=== PATIENT | female | born 1930 | race Caucasian/White ===

== ENCOUNTER 2018-03-03 10:05 | Inpatient (IN) | payer MEDICARE, OTHER ==
[2018-02-26 10:37] LABS: BASOPHILS % (AUTO) 0.2 % (0-1); EOSINOPHILS # (AUTO) 0.2 X10'3 (0-0.9); EOSINOPHILS % (AUTO) 2.2 % (0-6); LYMPHOCYTES # (AUTO) 1.6 X10'3 (1.1-4.8); LYMPHOCYTES % (AUTO) 17.1 % (21-51); MEAN CORPUSCULAR HEMOGLOBIN 30.7 PG (27.0-31.0); MEAN CORPUSCULAR HGB CONC 33.3 % (33.0-36.5); MEAN CORPUSCULAR VOLUME 92.3 FL (78-98); MEAN PLATELET VOLUME 6.9 FL (7.4-10.4); MONOCYTES # (AUTO) 0.7 X10'3 (0-0.9); NEUTROPHILS % (AUTO) 73.5 % (42-75); PRE OP HEMOGLOBIN 13.6 g/dL (12.0-16.0); PRE OP PLATELET COUNT 338 X10'3 (140-440); RED BLOOD COUNT 4.44 X10'6 (4.20-5.60); RED CELL DISTRIBUTION WIDTH 14.8 % (11.5-14.5)
[2018-02-26 10:37] LABS: CLARITY,URINE SLIGHTLY CLOUDY (Clear); COLOR,URINE YELLOW (Yellow); GLUCOSE, URINE NEGATIVE (Neg); KETONES,URINE NEGATIVE (Neg); LEUKOCYTE ESTERASE ,URINE MODERATE (Neg); NITRITES, URINE NEGATIVE (Neg); OCCULT BLOOD,URINE TRACE-INTACT (Neg); PH,URINE 5.5 (4.8-8.0); PROTEIN,URINE NEGATIVE (Neg); UROBILINOGEN,URINE 0.2 E.U/dL (0.2-1.0)
[2018-02-26 10:38] LABS: UA COLLECTION TYPE CLN CATCH MIDSTREAM
[2018-02-26 10:44] LABS: MUCUS STRANDS MODERATE /LPF (Neg); SQUAMOUS EPITHELIAL CELL,UR MANY /LPF (FEW); TRANSITIONAL EPI CELLS,URINE FEW /HPF
[2018-02-26 10:45] LABS: BACTERIA,URINE 1+ /HPF (Neg); RBC,URINE 0-2 /HPF (0-2)
[2018-02-26 10:52] LABS: ALBUMIN 3.4 G/DL (3.4-5.0); ALBUMIN/GLOBULIN RATIO 0.9 (1.1-1.5); ALKALINE PHOSPHATASE 65 IU/L (46-116); BLOOD UREA NITROGEN 18 MG/DL (7-18); BUN/CREATININE RATIO 16.2 (6.6-38.0); CALCIUM 9.1 MG/DL (8.5-10.1); CHLORIDE 105 MMOL/L (99-107); CREATININE 1.11 MG/DL (0.40-0.90); PRE OP ALT 24 U/L (30-65); PRE OP ANION GAP 9 (8-16); PRE OP AST 18 U/L (10-37); PRE OP BILIRUB, TOTAL 0.3 MG/DL (0.0-1.0); PRE OP GLUCOSE 101 MG/DL (70-104); PRE OP POTASSIUM 4.3 MMOL/L (3.4-5.1); PRE OP SODIUM 142 MMOL/L (135-145); TOTAL CARBON DIOXIDE 27.8 MMOL/L (24-32); TOTAL PROTEIN 7.2 G/DL (6.4-8.2); eGFR 46 ML/MIN
[~2018-03-03] VITALS: Ht 170.2 cm; Wt 67.0 kg
[2018-03-03] VITALS (16 sets, daily range): BP systolic 81–162; BP diastolic 53–90
[~2018-03-03 10:05] MED LIST: LEVO112T5 PO; ceFAZolin 2gm in dextrose, iso 100 ML IV ONE; famotidine 20mg tablet PO ONE
[2018-03-03] MEDS: ringers solution, lacted 1,000 ML IV SCH ×2 (11:08→17:14)
[2018-03-03] MEDS ORDERED: BUPIVAcaine 0.5% inj/PF 30 ml vial ONE (12:23)
[2018-03-03] MEDS ORDERED: ringers solution, lacted 1,000 ML IV SCH (12:34)
[2018-03-03] MEDS ORDERED: morphine 4 MG/ML inj SYRINge IV PRN ×2 (12:35)
[2018-03-03] MEDS ORDERED: fentaNYL/PF 50MCG/1 ML 2ML syringe IV PRN ×2 (12:35)
[2018-03-03] MEDS ORDERED: hydrALAZINE 20mg/ml inj. IV PRN (12:35)
[2018-03-03] MEDS ORDERED: labetalol 5mg/ml 20ml inj. IV PRN (12:35)
[2018-03-03] MEDS ORDERED: ondansetron/PF 4mg/2ml inj IV PRN (12:35)
[2018-03-03] MEDS ORDERED: sevoflurane 250ml liquid IH ONE (14:10)
[2018-03-03] MEDS ORDERED: dexamethasone sod phosphate 4mg/ml inj. ONE (14:10)
[2018-03-03] MEDS ORDERED: naloxone 0.4 mg/ml inj ONE (14:10)
[2018-03-03] MEDS ORDERED: propofol inj 20 ML IV ONE (14:19)
[2018-03-03] MEDS ORDERED: midazolam 2 mg/2 ml injection ONE (14:19)
[2018-03-03] MEDS ORDERED: fentaNYL/PF 50MCG/1 ML 2ML syringe ONE ×2 (14:19→15:12)
[2018-03-03] MEDS ORDERED: LIDOcaine 2% (20mg/ml) 5ml vial ONE (14:20)
[2018-03-03] MEDS ORDERED: ondansetron/PF 4mg/2ml inj ONE (14:20)
[2018-03-03] MEDS ORDERED: HYDROcodone/acetaminophen 5mg/325mg tablet PO PRN (15:45)
[2018-03-03] MEDS ORDERED: HYDROcodone/acetaminophen 5mg/325mg tablet PO ONE (15:45)
[2018-03-03] MEDS: potassium CL 20mEq in D5-1/2NS 1,000 ML IV SCH (23:10)
[2018-03-04] VITALS: BP 107/58
[2018-03-04] MEDS: potassium CL 20mEq in D5-1/2NS 1,000 ML IV SCH (04:11)
[2018-03-04 07:30] VITALS: BP 118/58
[2018-03-04 08:38] LABS: ALBUMIN 2.9 G/DL (3.4-5.0); ANION GAP 10 (8-16); BLOOD UREA NITROGEN 12 MG/DL (7-18); BUN/CREATININE RATIO 12.9 (6.6-38.0); CALCIUM 9.1 MG/DL (8.5-10.1); CHLORIDE 107 MMOL/L (99-107); CREATININE 0.93 MG/DL (0.40-0.90); GLUCOSE 138 MG/DL (70-104); POTASSIUM 4.3 MMOL/L (3.5-5.1); SODIUM 140 MMOL/L (135-145); TOTAL CARBON DIOXIDE 23.3 MMOL/L (24-32); eGFR 57 ML/MIN
[2018-03-04] MEDS ORDERED: iohexol 300mg/ml 100ml inj. ONE (09:14)
[2018-03-04 11:30] VITALS: BP 119/66
[2018-03-05] MEDS ORDERED: levoTHYROXINE 112mcg tablet PO SCH (08:00)
== END 2018-03-04 12:20 | disposition home or self-care (01) | DRG 376 ==
LOC: PAS 10:05 → SUR 3N 15:41
PROVIDERS: ADMIT Surgery; ATTEND Surgery
PROC: 0DBQ8ZX Excision of Anus, Via Natural or Artificial Opening Endoscopic, Diagnostic (ICD-10-PCS; 2018-03-03)
PROC: 0DBQ8ZZ Excision of Anus, Via Natural or Artificial Opening Endoscopic (ICD-10-PCS; 2018-03-03)
PROC: 0D5Q8ZZ Destruction of Anus, Via Natural or Artificial Opening Endoscopic (ICD-10-PCS; principal; 2018-03-03 14:10)
DX: C21.1 Malignant neoplasm of anal canal (principal); N18.3 Chronic kidney disease, stage 3 (moderate); K64.8 Other hemorrhoids; Z79.899 Other long term (current) drug therapy
CPT/HCPCS: 36415; 74177; 80048; 80053; 81001; 82378; 84443; 85025; 93005; A6224; A6253; A6258; A6449; A7000; J0690; J1100; J2001; J2250; J2310; J2405; J2704; J3010; J3490; J7120; Q9967

== ENCOUNTER 2018-03-16 13:50 | Inpatient (IN) | payer MEDICARE, OTHER ==
[~2018-03-16] VITALS: Ht 170.2 cm; Wt 65.2 kg
[~2018-03-16 13:50] MED LIST changes: -ceFAZolin 2gm in dextrose, iso 100 ML IV ONE; -famotidine 20mg tablet PO ONE
[2018-03-19 14:42] LABS: BASOPHILS % (AUTO) 0.3 % (0-1); EOSINOPHILS # (AUTO) 0.2 X10'3 (0-0.9); EOSINOPHILS % (AUTO) 2.1 % (0-6); LYMPHOCYTES # (AUTO) 2.1 X10'3 (1.1-4.8); LYMPHOCYTES % (AUTO) 22.1 % (21-51); MEAN CORPUSCULAR HGB CONC 33.8 % (33.0-36.5); MEAN CORPUSCULAR VOLUME 91.7 FL (78-98); MONOCYTES # (AUTO) 0.5 X10'3 (0-0.9); MONOCYTES % (AUTO) 5.7 % (2-12); NEUTROPHILS # (AUTO) 6.6 X10'3 (1.8-7.7); NEUTROPHILS % (AUTO) 69.8 % (42-75); PRE OP HEMATOCRIT 38.1 % (35.0-45.0); PRE OP HEMOGLOBIN 12.9 g/dL (12.0-16.0); PRE OP PLATELET COUNT 365 X10'3 (140-440); RED BLOOD COUNT 4.16 X10'6 (4.20-5.60); RED CELL DISTRIBUTION WIDTH 14.6 % (11.5-14.5)
[2018-03-19 14:46] LABS: CLARITY,URINE CLOUDY (Clear); COLOR,URINE YELLOW (Yellow); GLUCOSE, URINE NEGATIVE (Neg); KETONES,URINE NEGATIVE (Neg); LEUKOCYTE ESTERASE ,URINE LARGE (Neg); NITRITES, URINE NEGATIVE (Neg); OCCULT BLOOD,URINE MODERATE (Neg); PH,URINE 5.5 (4.8-8.0); PROTEIN,URINE TRACE mg/dl (Neg); UROBILINOGEN,URINE 0.2 E.U/dL (0.2-1.0)
[2018-03-19 14:51] LABS: UA COLLECTION TYPE CLN CATCH MIDSTREAM
[2018-03-19 14:52] LABS: MUCUS STRANDS MODERATE /LPF (Neg); SQUAMOUS EPITHELIAL CELL,UR MANY /LPF (FEW)
[2018-03-19 14:53] LABS: BACTERIA,URINE 2+ /HPF (Neg); WBC,URINE 30-50 /HPF (0-4)
[2018-03-19 14:57] LABS: PRE OP PROTIME 10.4 SECONDS (9.0-12.0)
[2018-03-19 15:07] LABS: ALBUMIN 3.3 G/DL (3.4-5.0); ALBUMIN/GLOBULIN RATIO 0.9 (1.1-1.5); ALKALINE PHOSPHATASE 67 IU/L (46-116); BLOOD UREA NITROGEN 22 MG/DL (7-18); CHLORIDE 108 MMOL/L (99-107); PRE OP ALT 28 U/L (30-65); PRE OP ANION GAP 8 (8-16); PRE OP AST 20 U/L (10-37); PRE OP BILIRUB, TOTAL 0.2 MG/DL (0.0-1.0); PRE OP GLUCOSE 110 MG/DL (70-104); PRE OP SODIUM 144 MMOL/L (135-145); TOTAL CARBON DIOXIDE 27.6 MMOL/L (24-32); eGFR 47 ML/MIN
[2018-03-20] VITALS (18 sets, daily range): BP systolic 103–155; BP diastolic 49–82
[2018-03-20] MEDS ORDERED: ringers solution, lacted 1,000 ML IV SCH ×2 (05:00→09:40)
[2018-03-20] MEDS ORDERED: ceFOXitin 2 GM ADDvantage bag 100 ML IV ONE (05:30)
[2018-03-20] MEDS ORDERED: famotidine 20mg tablet PO ONE (05:30)
[2018-03-20] MEDS ORDERED: LIDOcaine 1% (10mg/ml) 2ml vial ONE (06:18)
[2018-03-20] MEDS ORDERED: propofol inj 20 ML IV ONE (07:35)
[2018-03-20] MEDS ORDERED: fentaNYL/PF 50MCG/1 ML 2ML syringe ONE ×2 (07:35→09:02)
[2018-03-20] MEDS ORDERED: LIDOcaine 2% (20mg/ml) 5ml vial ONE (07:35)
[2018-03-20] MEDS ORDERED: rocuronium 10mg/ml inj IV ONE (07:35)
[2018-03-20] MEDS ORDERED: neostigmine methylsulfate 1 MG/ML 10ml vial ONE (08:36)
[2018-03-20] MEDS ORDERED: sevoflurane 250ml liquid IH ONE (08:36)
[2018-03-20] MEDS ORDERED: dexamethasone sod phosphate 4mg/ml inj. ONE (08:55)
[2018-03-20] MEDS ORDERED: ondansetron/PF 4mg/2ml inj ONE (08:55)
[2018-03-20] MEDS ORDERED: glycopyrrolate 0.2mg/ml inj ONE (09:15)
[2018-03-20] MEDS ORDERED: HYDROmorphone inj. 0.5 MG/0.5 ML DISP.SYRIN IV PRN (09:40)
[2018-03-20] MEDS ORDERED: proCHLORperazine 10 MG/2 ml inj IV PRN (09:40)
[2018-03-20] MEDS ORDERED: fentaNYL/PF 50MCG/1 ML 2ML syringe IV PRN (09:40)
[2018-03-20] MEDS ORDERED: ondansetron/PF 4mg/2ml inj IV PRN ×2 (09:40→10:20)
[2018-03-20] MEDS ORDERED: HYDROcodone/acetaminophen 10/325mg tab PO PRN (10:20)
[2018-03-20] MEDS ORDERED: HYDROcodone/acetaminophen 5mg/325mg tablet PO PRN (10:20)
[2018-03-20] MEDS ORDERED: morphine 4 MG/ML inj SYRINge IV PRN (12:00)
[2018-03-20] MEDS ORDERED: MORPHINE 2MG in 2ml NS syringe IV PRN (12:00)
[2018-03-20] MEDS: potassium CL 20mEq in D5-1/2NS 1,000 ML IV SCH ×2 (15:09→22:48)
[2018-03-20] MEDS: ceFAZolin inj. 1,000 MG in dextrose 5%-water 50ml 50 ML IV SCH (15:10)
[2018-03-20] MEDS: morphine 4 MG/ML inj SYRINge IV PRN (20:31)
[2018-03-21] VITALS: BP 114/46
[2018-03-21] MEDS: ceFAZolin inj. 1,000 MG in dextrose 5%-water 50ml 50 ML IV SCH ×2 (01:33→08:17)
[2018-03-21] MEDS: potassium CL 20mEq in D5-1/2NS 1,000 ML IV SCH ×2 (05:10→23:48)
[2018-03-21 07:00] VITALS: BP 99/55
[2018-03-21] MEDS: morphine 4 MG/ML inj SYRINge IV PRN ×3 (10:29→22:44)
[2018-03-21 11:00] VITALS: BP 106/48
[2018-03-21 18:00] VITALS: BP 100/54
[2018-03-22] VITALS: BP 134/74
[2018-03-22 04:12] VITALS: BP 126/67
[2018-03-22 07:00] VITALS: BP_SYST 114; BP_SYST 136; BP_DIAS 67; BP_DIAS 73
[2018-03-22] MEDS: levoTHYROXINE 112mcg tablet PO SCH (07:41)
[2018-03-22] MEDS: potassium CL 20mEq in D5-1/2NS 1,000 ML IV SCH (12:18)
[2018-03-22 12:31] VITALS: BP 114/67
[2018-03-22 13:20] LABS: BASOPHILS % (AUTO) 0.3 % (0-1); EOSINOPHILS # (AUTO) 0.1 X10'3 (0-0.9); HEMATOCRIT 37.7 % (35.0-45.0); HEMOGLOBIN 12.5 g/dl (12.0-16.0); LYMPHOCYTES # (AUTO) 1.5 X10'3 (1.1-4.8); LYMPHOCYTES % (AUTO) 12.6 % (21-51); MEAN CORPUSCULAR HEMOGLOBIN 30.4 PG (27.0-31.0); MEAN CORPUSCULAR HGB CONC 33.2 % (33.0-36.5); MEAN CORPUSCULAR VOLUME 91.5 FL (78-98); MEAN PLATELET VOLUME 7.1 FL (7.4-10.4); MONOCYTES # (AUTO) 1.1 X10'3 (0-0.9); MONOCYTES % (AUTO) 8.9 % (2-12); NEUTROPHILS # (AUTO) 9.2 X10'3 (1.8-7.7); NEUTROPHILS % (AUTO) 77.2 % (42-75); PLATELET COUNT 355 X10'3 (140-440); RED BLOOD COUNT 4.12 X10'6 (4.20-5.60); WHITE BLOOD COUNT 11.9 X10'3 (4.5-11.0)
[2018-03-22 13:38] LABS: ALANINE AMINOTRANSFERASE 21 U/L (12-78); ALBUMIN 2.9 G/DL (3.4-5.0); ALBUMIN/GLOBULIN RATIO 0.8 (1.1-1.5); ALKALINE PHOSPHATASE 71 IU/L (46-116); ANION GAP 9 (8-16); ASPARTATE AMINO TRANSFERASE 17 U/L (10-37); BILIRUBIN,TOTAL 0.4 MG/DL (0.1-1.0); BLOOD UREA NITROGEN 12 MG/DL (7-18); BUN/CREATININE RATIO 13.6 (6.6-38.0); CALCIUM 9.4 MG/DL (8.5-10.1); CHLORIDE 102 MMOL/L (99-107); CREATININE 0.88 MG/DL (0.40-0.90); GLUCOSE 103 MG/DL (70-104); POTASSIUM 3.7 MMOL/L (3.5-5.1); SODIUM 139 MMOL/L (135-145); TOTAL CARBON DIOXIDE 27.8 MMOL/L (24-32); TOTAL PROTEIN 6.4 G/DL (6.4-8.2); eGFR 61 ML/MIN
[2018-03-22] MEDS ORDERED: cefepime inj. 1 GM in dextrose 5%-water 50ml 100 ML IV SCH (16:00)
[2018-03-22] MEDS ORDERED: cefepime inj. 1 GM in dextrose 5%-water 50ml 50 ML IV SCH (16:47)
[2018-03-22] MEDS ORDERED: cefepime 1GM/100ML NS ADD-VANTAGE BAG IV ONE (17:10)
[2018-03-22] MEDS: cefepime inj. 1 GM in dextrose 5%-water 50ml 50 ML IV SCH (17:15)
[2018-03-22] MEDS ORDERED: cefepime inj. 1 GM in dextrose 5%-water 50ml 100 ML IV ONE (17:15)
[2018-03-22 19:30] VITALS: BP 111/68
[2018-03-22] MEDS: morphine 4 MG/ML inj SYRINge IV PRN (20:32)
[2018-03-23] VITALS: BP 139/61
[2018-03-23] MEDS: cefepime inj. 1 GM in dextrose 5%-water 50ml 50 ML IV SCH ×2 (00:22→11:58)
[2018-03-23] MEDS: morphine 4 MG/ML inj SYRINge IV PRN (01:10)
[2018-03-23 04:00] VITALS: BP 136/81
[2018-03-23 05:13] LABS: BASOPHILS % (AUTO) 0.3 % (0-1); EOSINOPHILS # (AUTO) 0.3 X10'3 (0-0.9); EOSINOPHILS % (AUTO) 2.3 % (0-6); HEMATOCRIT 35.5 % (35.0-45.0); HEMOGLOBIN 11.8 g/dl (12.0-16.0); LYMPHOCYTES # (AUTO) 1.8 X10'3 (1.1-4.8); MEAN CORPUSCULAR HEMOGLOBIN 30.9 PG (27.0-31.0); MEAN CORPUSCULAR HGB CONC 33.3 % (33.0-36.5); MEAN CORPUSCULAR VOLUME 92.6 FL (78-98); MEAN PLATELET VOLUME 7.3 FL (7.4-10.4); MONOCYTES # (AUTO) 1.1 X10'3 (0-0.9); MONOCYTES % (AUTO) 10.2 % (2-12); NEUTROPHILS # (AUTO) 7.9 X10'3 (1.8-7.7); NEUTROPHILS % (AUTO) 71.2 % (42-75); PLATELET COUNT 306 X10'3 (140-440); RED BLOOD COUNT 3.84 X10'6 (4.20-5.60); RED CELL DISTRIBUTION WIDTH 14.7 % (11.5-14.5); WHITE BLOOD COUNT 11.1 X10'3 (4.5-11.0)
[2018-03-23 05:29] LABS: ALBUMIN 2.7 G/DL (3.4-5.0); ANION GAP 9 (8-16); BLOOD UREA NITROGEN 11 MG/DL (7-18); BUN/CREATININE RATIO 12.6 (6.6-38.0); CHLORIDE 105 MMOL/L (99-107); CREATININE 0.87 MG/DL (0.40-0.90); GLUCOSE 103 MG/DL (70-104); POTASSIUM 3.9 MMOL/L (3.5-5.1); SODIUM 141 MMOL/L (135-145); TOTAL CARBON DIOXIDE 26.9 MMOL/L (24-32); eGFR 62 ML/MIN
[2018-03-23 07:00] VITALS: BP 130/89
[2018-03-23] MEDS: levoTHYROXINE 112mcg tablet PO SCH (10:19)
[2018-03-23 11:00] VITALS: BP 107/66
[2018-03-23] MEDS ORDERED: lactobacillus rhamnosus 10,000 MMU CELLS/CAPSULE PO SCH (20:00)
== END 2018-03-23 17:26 | disposition home or self-care (01) | DRG 330 ==
LOC: EDSTATUS 13:50 → PAS IN 03-20 05:36 → EDSTATUS 03-20 08:00 → ORTHO 4S 03-20 10:35 → SUR 3N 03-20 16:38
PROVIDERS: ADMIT Surgery; ATTEND Surgery
PROC: 0D1L0Z4 Bypass Transverse Colon to Cutaneous, Open Approach (ICD-10-PCS; principal; 2018-03-20 08:36)
DX: C20 Malignant neoplasm of rectum (principal); N17.9 Acute kidney failure, unspecified; C79.9 Secondary malignant neoplasm of unspecified site; C21.1 Malignant neoplasm of anal canal; E03.9 Hypothyroidism, unspecified; Z87.891 Personal history of nicotine dependence
CPT/HCPCS: 36415; 71046; 80048; 80053; 81001; 84443; 85025; 85610; 85730; 86885; 86900; 86901; 87070; A4315; A4421; A4649; A6224; A6251; A6253; A7000; J0690; J0692; J0694; J1100; J2001; J2270; J2274; J2405; J2704; J2710; J3010; J3490; J7060; J7120

== ENCOUNTER 2019-02-15 12:11 | Emergency (ER) | payer MEDICARE, OTHER ==
[~2019-02-15] VITALS: Ht 170.2 cm; Wt 65.9 kg
[2019-02-15] MEDS: HYDROcodone/acetaminophen 10/325mg tab PO ONE ×2 (13:40→13:42)
[2019-02-15] MEDS ORDERED: acetaminophen 325mg tablet PO ONE (14:05)
[2019-02-15] MEDS ORDERED: HYDROcodone/acetaminophen 10/325mg tab PO ONE (14:05)
--- NOTE | 2019-02-15 14:05 | NUR ---
PT REQUESTING NORCO FROM DR BORJAS. DR BORJAS OK'D
[2019-02-15] MEDS ORDERED: HYDR-4353 PO (14:46)
[2019-02-15 15:05] VITALS: BP 138/78
== END 2019-02-15 15:06 | disposition home or self-care (01) ==
LOC: ER 12:11
DX: M41.86 Other forms of scoliosis, lumbar region (principal); M41.9 Scoliosis, unspecified
CPT/HCPCS: 72100; 93005; 99284

== ENCOUNTER 2019-02-19 10:39 | Emergency (ER) | payer MEDICARE, OTHER ==
[~2019-02-19] VITALS: Ht 170.2 cm; Wt 65.9 kg
[~2019-02-19 10:39] MED LIST changes: +HYDR-4353 PO
[2019-02-19 11:59] LABS: BASOPHILS % (AUTO) 0.3 % (0-1); EOSINOPHILS % (AUTO) 0.6 % (0-6); HEMATOCRIT 38.3 % (35.0-45.0); HEMOGLOBIN 12.7 g/dl (12.0-16.0); LYMPHOCYTES # (AUTO) 0.6 X10'3 (1.1-4.8); LYMPHOCYTES % (AUTO) 7.6 % (21-51); MEAN CORPUSCULAR HEMOGLOBIN 30.6 PG (27.0-31.0); MEAN CORPUSCULAR HGB CONC 33.1 g/dL (33.0-36.5); MEAN CORPUSCULAR VOLUME 92.6 FL (78-98); MEAN PLATELET VOLUME 6.4 FL (7.4-10.4); MONOCYTES # (AUTO) 0.8 X10'3 (0-0.9); MONOCYTES % (AUTO) 9.2 % (2-12); NEUTROPHILS # (AUTO) 6.9 X10'3 (1.8-7.7); NEUTROPHILS % (AUTO) 82.3 % (42-75); PLATELET COUNT 424 X10'3 (140-440); RED BLOOD COUNT 4.14 X10'6 (4.20-5.60); RED CELL DISTRIBUTION WIDTH 16.4 % (11.5-14.5); WHITE BLOOD COUNT 8.4 X10'3 (4.5-11.0)
[2019-02-19 12:21] LABS: ALANINE AMINOTRANSFERASE 52 U/L (12-78); ALBUMIN 3.3 G/DL (3.4-5.0); ALBUMIN/GLOBULIN RATIO 0.9 (1.1-1.5); ALKALINE PHOSPHATASE 102 IU/L (46-116); ANION GAP 12 (8-16); ASPARTATE AMINO TRANSFERASE 30 U/L (10-37); BILIRUBIN,TOTAL 0.2 MG/DL (0.1-1.0); BLOOD UREA NITROGEN 32 MG/DL (7-18); BUN/CREATININE RATIO 30.5 (6.6-38.0); CALCIUM 9.2 MG/DL (8.5-10.1); CHLORIDE 102 MMOL/L (99-107); CREATININE 1.05 MG/DL (0.40-0.90); GLUCOSE 114 MG/DL (70-104); SODIUM 136 MMOL/L (135-145); TOTAL CARBON DIOXIDE 22.3 MMOL/L (24-32); eGFR 49 ML/MIN
[2019-02-19] MEDS ORDERED: oxyCODONE/APAP 5-325mg tablet PO ONE (15:20)
[2019-02-19 17:01] VITALS: BP 110/72
[2019-02-19 17:13] LABS: CLARITY,URINE CLOUDY (Clear); COLOR,URINE YELLOW (Yellow); GLUCOSE, URINE NEGATIVE (Neg); KETONES,URINE TRACE mg/dl (Neg); LEUKOCYTE ESTERASE ,URINE SMALL (Neg); NITRITES, URINE POSITIVE (Neg); OCCULT BLOOD,URINE MODERATE (Neg); PROTEIN,URINE TRACE mg/dl (Neg); UROBILINOGEN,URINE 0.2 E.U/dL (0.2-1.0)
[2019-02-19 17:18] LABS: UA COLLECTION TYPE CLN CATCH MIDSTREAM
[2019-02-19 17:22] LABS: BACTERIA,URINE 3+ /HPF (Neg); MUCUS STRANDS FEW /LPF (Neg); RBC,URINE 0-2 /HPF (0-2); SQUAMOUS EPITHELIAL CELL,UR MANY /LPF (FEW); WBC,URINE 20-30 /HPF (0-4)
[2019-02-19] MEDS ORDERED: CEPH500C5 PO (17:29)
== END 2019-02-19 17:40 | disposition home or self-care (01) ==
LOC: ER 10:40
DX: G89.29 Other chronic pain (principal); M54.5 Low back pain; N39.0 Urinary tract infection, site not specified; Z90.49 Acquired absence of other specified parts of digestive tract; Z79.899 Other long term (current) drug therapy
CPT/HCPCS: 36415; 80053; 81001; 85025; 99284

== ENCOUNTER 2019-02-22 16:42 | Emergency (ER) | payer MEDICARE, OTHER ==
[~2019-02-22] VITALS: Ht 170.2 cm; Wt 65.0 kg
[~2019-02-22 16:42] MED LIST changes: +CEPH500C5 PO
[2019-02-22] MEDS ORDERED: oxyCODONE/APAP 5-325mg tablet PO ONE (17:25)
[2019-02-22] MEDS ORDERED: triamcinolone acetonide 40mg/ml inj IM ONE (17:40)
--- NOTE | 2019-02-22 18:00 | NUR ---
to ct scan via [facility]
--- NOTE | 2019-02-22 18:58 | NUR ---
PATIENT UP TO [facility]
[2019-02-22 19:15] LABS: CLARITY,URINE CLOUDY (Clear); COLOR,URINE YELLOW (Yellow); GLUCOSE, URINE NEGATIVE (Neg); KETONES,URINE NEGATIVE (Neg); LEUKOCYTE ESTERASE ,URINE SMALL (Neg); NITRITES, URINE NEGATIVE (Neg); OCCULT BLOOD,URINE MODERATE (Neg); PROTEIN,URINE 30 mg/dl (Neg); UROBILINOGEN,URINE 0.2 E.U/dL (0.2-1.0)
[2019-02-22 19:17] LABS: UA COLLECTION TYPE CLN CATCH MIDSTREAM
[2019-02-22 19:29] LABS: SQUAMOUS EPITHELIAL CELL,UR MANY /LPF (FEW)
[2019-02-22 19:30] LABS: BACTERIA,URINE FEW /HPF (Neg); RBC,URINE 0-2 /HPF (0-2)
[2019-02-22] MEDS ORDERED: PER10325T PO (19:54)
[2019-02-22 20:53] VITALS: BP 136/86
--- NOTE | 2019-02-22 20:59 | NUR ---
On discharge, the patient and her friend were given marriage and family social worker information for future placement. a marriage and family social worker consult was ordered per dr. Knox
== END 2019-02-22 20:56 | disposition home or self-care (01) ==
LOC: ER 16:43
DX: N39.0 Urinary tract infection, site not specified (principal); G89.29 Other chronic pain; M54.9 Dorsalgia, unspecified
CPT/HCPCS: 72131; 81001; 96372; 99284; J3301